=== PATIENT | female | born 1975 | race Caucasian/White ===

== ENCOUNTER 2019-03-10 10:53 | Day surgery (SDC) | payer BC ==
[~2019-03-10] VITALS: Ht 167.6 cm; Wt 77.0 kg
[~2019-03-10 10:53] MED LIST: CEFAZOLIN 1,000 MG ONE; CHOL400C11 PO; DEXAMETHASONE 4 MG/ML, 1ML ONE; FENTANYL PF 250 MCG/5ML ONE; GLYCOPYRROLATE 0.2MG/1ML, 5ML ONE; KETOROLAC 30 MG/1 ML ONE; LACT1CAP35 PO; MIDAZOLAM 1 MG/ML, 2ML ONE; NEOSTIGMINE 1 MG/ML, 10ML ONE; ONDANSETRON 2MG/ML, 2ML ONE; PROPOFOL 10 MG/ML, 20ML ONE; RHODIOLA PO; ROCURONIUM 10MG/ML,5ML ONE; VITA1CAP PO
[2019-03-10] MEDS ORDERED: LACTATED RINGERS 1,000 ML IV SCH (11:05)
[2019-03-10] MEDS ORDERED: GABAPENTIN 300 MG CAPSULE PO ONE (11:30)
[2019-03-10] MEDS ORDERED: ACETAMINOPHEN 500 MG TABLET PO ONE (11:30)
[2019-03-10] MEDS ORDERED: SCOPOLAMINE PATCH, 1.5MG PATCH.TD72 TD ONE (11:30)
[2019-03-10] MEDS ORDERED: BUPIVACAINE/PF 0.25% ONE (11:53)
[2019-03-10] MEDS ORDERED: EPINEPHRINE 1 MG/ML, 1ML ONE (11:54)
[2019-03-10] MEDS ORDERED: INDIGO CARMINE 0.8%, 5ML ONE (11:54)
[2019-03-10] MEDS ORDERED: HEPARIN 1,000 UNITS/ML, 30ML ONE (12:15)
[2019-03-10] MEDS ORDERED: OXYcodone 5 MG/5 ML ORAL.SOL UDC PO PRN (12:30)
[2019-03-10] MEDS ORDERED: HALOPERIDOL 5 MG/ML IV PRN (12:30)
[2019-03-10] MEDS ORDERED: MORPHINE SULFATE 4 MG/ML, 1ML IVPush PRN (12:30)
[2019-03-10] MEDS ORDERED: hydrALAzine 20 MG/ML, 1ML IV PRN (12:30)
[2019-03-10] MEDS ORDERED: LABETALOL 5MG/ML, 20ML IV PRN (12:30)
[2019-03-10] MEDS ORDERED: HYDROmorphone 2 MG/ML, 1ML IVPush PRN (12:30)
[2019-03-10] MEDS ORDERED: FENTANYL PF 100 MCG/2ML IV PRN (12:30)
[2019-03-10] MEDS ORDERED: PROMETHAZINE 25 MG/ML, 1ML IV PRN (12:30)
[2019-03-10] MEDS ORDERED: MEPERIDINE/PF 25MG/ML,1ML IVPush PRN (12:30)
[2019-03-10 12:52] LABS: HCG UR SG 1.026 (1.003-1.030)
[2019-03-10] MEDS ORDERED: FENTANYL PF 250 MCG/5ML ONE (13:00)
[2019-03-10] MEDS ORDERED: MEPERIDINE/PF 25MG/ML,1ML ONE (14:44)
[2019-03-10] MEDS ORDERED: HALOPERIDOL 5 MG/ML ONE (14:58)
== END 2019-03-10 18:55 | disposition home or self-care (01) ==
LOC: OUT 10:53
PROVIDERS: ATTEND Obstetrics & Gynecology Gynecology
DX: N93.9 Abnormal uterine and vaginal bleeding, unspecified (principal); D25.2 Subserosal leiomyoma of uterus; N94.6 Dysmenorrhea, unspecified; N80.0 Endometriosis of uterus; N88.8 Other specified noninflammatory disorders of cervix uteri; F32.9 Major depressive disorder, single episode, unspecified; Z98.51 Tubal ligation status; Z88.1 Allergy status to other antibiotic agents; Z88.5 Allergy status to narcotic agent; Z88.8 Allergy status to other drugs, medicaments and biological substances
CPT/HCPCS: 58573; 81025; 88307; J0690; J1100; J1630; J1885; J2175; J2250; J2405; J2704; J2710; J3010; J3490; J7120; J0171; J1644